=== PATIENT | female | born 1950 | race Caucasian/White ===

== ENCOUNTER 2020-05-01 10:28 | Outpatient (REF) | payer MEDICARE, SELFPAY ==
--- NOTE | 2020-05-01 10:34 | MM_ITS ---
EXAMINATION: MM SCREENING DIGITAL MAMMOGRAPHY, BILATERAL CLINICAL INFORMATION: Screening. Asymptomatic. Remote history left excisional biopsy 2008. The lifetime risk of breast cancer based on the Tyrer-Cuzick Model is 13%. COMPARISON: Mammography: 04/26/2019, 04/06/2018, 03/11/2017, 02/20/2016 TECHNIQUE: Digital mammography is performed in craniocaudal and mediolateral oblique views along with computer-aided detection (CAD). FINDINGS: There are scattered areas of fibroglandular density (ACR BI-RADS breast composition Category b). Parenchymal pattern is similar to prior exams. There is stable scarring central inner left breast on CC view similar to prior studies. Neither breast shows interval mass or architectural abnormality or developing density. There are no abnormal calcifications. The axilla and skin contours are unremarkable. IMPRESSION: No significant changes from prior studies. ASSESSMENT: BI-RADS 2: Benign RECOMMENDATION: Routine annual mammography screening. This patient's information was entered into a reminder system with a target due date for their next mammogram.
== END 2020-05-01 10:29 | disposition home or self-care (01) ==
LOC: HO.MAMMO 10:28
PROVIDERS: PCP Internal Medicine; Visit Provider Internal Medicine
DX: Z12.31 Encounter for screening mammogram for malignant neoplasm of breast (principal)
CPT/HCPCS: 77067

== ENCOUNTER 2020-08-09 07:59 | Outpatient (REF) | payer MEDICARE, SELFPAY | END 2020-08-09 08:00 | disposition home or self-care (01) | LOC: HO.LAB 07:59 | PROVIDERS: Visit Provider Internal Medicine | DX: Z20.822 Contact with and (suspected) exposure to COVID-19 (principal) | CPT/HCPCS: 36415; C9803; U0003 ==

== ENCOUNTER 2021-05-03 11:01 | Outpatient (REF) | payer MEDICARE, SELFPAY ==
--- NOTE | ~2021-05-03 | MM_ITS ---
EXAMINATION: MM SCREENING DIGITAL BREAST TOMOSYNTHESIS, BILATERAL CLINICAL INFORMATION: Screening. Asymptomatic. Left excisional biopsies, reported to be benign on old reports. The lifetime risk of breast cancer based on the Tyrer-Cuzick Model is 11%. COMPARISON: Mammography: 05/01/2020, 04/26/2019, 04/06/2018, 03/11/2017, 02/20/2016 TECHNIQUE: Digital breast tomosynthesis is performed in both the craniocaudal and mediolateral oblique views along with computer-aided detection (CAD). Synthesized 2D images are generated from the tomosynthesis. FINDINGS: There are scattered areas of fibroglandular density (ACR BI-RADS breast composition Category b). There is chronic scarring mid 11:00 left breast similar to prior studies. Neither breast shows interval mass or architectural abnormality. There are no abnormal calcifications. The axilla and skin contours are unremarkable. No significant changes. MM/MM tomosynthesis screening BI IMPRESSION: No significant changes from prior studies. Chronic scarring mid inner left breast. ASSESSMENT: BI-RADS 2: Benign RECOMMENDATION: Routine annual mammography screening. This patient's information was entered into a reminder system with a target due date for their next mammogram.
== END 2021-05-03 11:02 | disposition home or self-care (01) ==
LOC: HO.MAMMO 11:01
PROVIDERS: Visit Provider Internal Medicine
DX: Z12.31 Encounter for screening mammogram for malignant neoplasm of breast (principal)
CPT/HCPCS: 77063; 77067

== ENCOUNTER 2021-07-24 12:08 | Emergency (ER) | payer MEDICARE, SELFPAY ==
--- NOTE | ~2021-07-24 | XR_ITS ---
Indication: Pain, swelling, fall EXAMINATION: Right hand, wrist. 3 views of the right hand in a single detailed view of the right wrist. Cannot exclude some mild subluxation of the first MCP joint. Correlation recommended clinically. No evidence for acute fracture or pooja dislocation. XR/XR hand wrist RT IMPRESSION: No acute fracture or pooja dislocation. Mild angulation on one view only of the first MCP joint. Mild element of subluxation here cannot be excluded. Correlation recommended clinically.
[2021-07-24 13:57] VITALS: BP 126/72; PULSE 79; RESP 18; TEMP 36.8; O2SAT 98; BMI 30.9
--- NOTE | 2021-07-24 16:45 | ED_ITS ---
HPI - Extremity Problem General Chief complaint: Extremity Injury, Upper Stated complaint: R Wrist Pain S/P Fall 07/24/21 Time Seen by Provider: 07/24/21 16:44 History of Present Illness HPI Narrative: Patient complains of right wrist pain after falling this morning the pain is the anterior wrist there is no other injury no numbness weakness or tingling Related Data Allergies Allergy/AdvReac Type Severity Reaction Status Date / Time No Known Allergies Allergy Verified 07/24/21 14:01 Review of Systems Review of Systems: Positive for right wrist pain Negatives are no dizziness no weakness no fainting no headache no head injury no neck pain no numbness weakness or tingling no other extremity injuries or pains Yes all other systems are reviewed and are negative [facility] Past Medical History Source: nursing notes reviewed Medical History (Updated 07/25/21 @ 00:02 by Brittany Wagoner) High cholesterol HTN (hypertension) Social History Social History Advance Directives: Yes Advance Directives Information Provided: No Advance Directives on File: No Physical Exam Vital Signs: Vital Signs: Last Vital Signs Temp 98.2 F 07/24/21 13:57 Pulse 79 07/24/21 13:57 Resp 18 07/24/21 13:57 BP 126/72 07/24/21 13:57 Pulse Ox 98 07/24/21 13:57 BMI result Body Mass Index 30.9 General appearance no acute distress The head is normocephalic atraumatic The neck is supple nontender Respiratory no distress The back full range of motion The extremities the right wrist has some tenderness mostly on volar aspect there is no deformity there is good range of motion in the wrist and full range of motion in the fingers and neurovascular intact distal with skin intact Course Course Course Narrative: X-ray did not show any fracture and exam was not consistent with a broken bone X-ray showed some concern about the 1st MCP but on exam there is no tenderness or pain around the 1st MCP which had full range of motion and no limitations Discharge Plan Discharge Clinical Impression: Sprain and strain of wrist Patient Disposition: Home, Self-Care Additional Instructions: X-ray did not show any broken bone We gave you a splint for comfort which is not required all the time, only if it makes it more comfortable Follow with orthopedist next week if not better Return any concerns Referrals: July Bhatia MD [Physician] - 1 week (Right wrist sprain) Interventions: ED Discharge Assessment Last Done: 07/24/21 17:17 Discharge Date/Time: 07/24/21 17:19
== END 2021-07-24 17:19 | disposition home or self-care (01) ==
PROVIDERS: Emergency Provider Emergency Medicine Emergency Medical Services; PCP Internal Medicine
DX: S63.501A Unspecified sprain of right wrist, initial encounter (principal); S66.911A Strain of unspecified muscle, fascia and tendon at wrist and hand level, right hand, initial encounter; I10 Essential (primary) hypertension; W19.XXXA Unspecified fall, initial encounter; Y93.9 Activity, unspecified; Y92.9 Unspecified place or not applicable; Y99.9 Unspecified external cause status
CPT/HCPCS: 73110; 73130; 99283

== ENCOUNTER 2022-05-09 15:22 | Outpatient (REF) | payer MEDICARE, SELFPAY ==
--- NOTE | ~2022-05-09 | MM_ITS ---
EXAMINATION: MM SCREENING DIGITAL BREAST TOMOSYNTHESIS, BILATERAL CLINICAL INFORMATION: Screening. Asymptomatic. The lifetime risk of breast cancer based on the Tyrer-Cuzick Model is 10.4%. COMPARISON: Mammography: May 03, 2021 and studies dating back to December 14, 2013 TECHNIQUE: Digital breast tomosynthesis is performed in both the craniocaudal and mediolateral oblique views along with computer-aided detection (CAD). Synthesized 2D images are generated from the tomosynthesis. FINDINGS: There are scattered areas of fibroglandular density (ACR BI-RADS breast composition Category b). There are no new significant masses, abnormal calcifications, or other abnormalities. Postsurgical change again seen within the left breast. MM/MM tomosynthesis screening BI IMPRESSION: No significant changes from prior exam. ASSESSMENT: BI-RADS 2: Benign RECOMMENDATION: Routine annual mammography screening. This patient's information was entered into a reminder system with a target due date for their next mammogram.
== END 2022-05-09 15:23 | disposition home or self-care (01) ==
LOC: HO.MAMMO 15:22
PROVIDERS: Visit Provider Internal Medicine
DX: Z12.31 Encounter for screening mammogram for malignant neoplasm of breast (principal)
CPT/HCPCS: 77063; 77067

== ENCOUNTER 2023-05-12 10:17 | Outpatient (REF) | payer MEDICARE, SELFPAY ==
--- NOTE | ~2023-05-12 | MM_ITS ---
EXAMINATION: MM SCREENING DIGITAL BREAST TOMOSYNTHESIS, BILATERAL CLINICAL INFORMATION: Screening. Asymptomatic. Patient is status post prior benign excisional left breast breast biopsies. COMPARISON: Mammography: This study is compared with prior exams dating back to 2017. TECHNIQUE: Digital breast tomosynthesis is performed in both the craniocaudal and mediolateral oblique views along with computer-aided detection (CAD). Synthesized 2D images are generated from the tomosynthesis. FINDINGS: There are scattered areas of fibroglandular density (ACR BI-RADS breast composition Category b). There are no significant masses, abnormal calcifications, or other abnormalities in either breast. There are architectural changes in the medial aspect of the left breast at a middle depth. This is from prior benign excisional biopsy. This finding is unchanged since at least 2016. There are 2 benign calcifications associated with this region which are unchanged since at least as far back as 2017. There are also architectural changes in the upper outer quadrant of the left breast from prior surgery. MM/MM tomosynthesis screening BI IMPRESSION: No mammographic evidence of malignancy. ASSESSMENT: BI-RADS BI-RADS 2 - Benign Findings RECOMMENDATION: Routine annual mammography screening. 1 year F/U This examination should not preclude the clinical evaluation of a suspicious palpable abnormality. This patient's information was entered into a reminder system with a target due date for their next mammogram.
== END 2023-05-12 10:18 | disposition home or self-care (01) ==
LOC: HO.MAMMO 10:17
PROVIDERS: PCP Internal Medicine; Visit Provider Internal Medicine
DX: Z12.31 Encounter for screening mammogram for malignant neoplasm of breast (principal)
CPT/HCPCS: 77063; 77067

== ENCOUNTER → 2023-05-12 10:30 | Outpatient (BNV) | payer MEDICARE, SELFPAY | PROVIDERS: PCP Internal Medicine; Visit Provider Radiology Diagnostic Radiology | DX: Z12.31 Encounter for screening mammogram for malignant neoplasm of breast (principal) | CPT/HCPCS: 77063; 77067 ==

== ENCOUNTER 2024-06-16 12:11 | Outpatient (REF) | payer MEDICARE, SELFPAY ==
--- NOTE | ~2024-06-16 | MM_ITS ---
EXAMINATION: MM SCREENING DIGITAL BREAST TOMOSYNTHESIS, BILATERAL CLINICAL INFORMATION: Screening. Asymptomatic. COMPARISON: Mammography: Comparison is made with available priors TECHNIQUE: Digital breast mammography with tomosynthesis is performed in both the craniocaudal and mediolateral oblique views along with computer-aided detection (CAD). FINDINGS: There are scattered areas of fibroglandular density (ACR BI-RADS breast composition Category b). Right: There are no significant masses, abnormal calcifications, or other abnormalities. Left: Asymmetry medial breast anterior depth on CC view with questioned architectural distortion. There are post excisional biopsy changes stable back to 2017. No suspicious calcifications or other abnormal findings. MM/MM tomosynthesis screening BI IMPRESSION: Additional imaging is recommended ASSESSMENT: BI-RADS BI-RADS 0 - Incomplete: Needs additional Imaging. RECOMMENDATION: 1. Additional views of the left breast 2. Targeted ultrasound if warranted after review of the additional views. 3. Radiology department staff will contact the patient for additional imaging. Additional Imaging required This examination should not preclude the clinical evaluation of a suspicious palpable abnormality. This patient's information was entered into a reminder system with a target due date for their next mammogram. Electronically signed by: Evie Van DO 06/23/2024 02:51 PM [facility]
== END 2024-06-16 12:12 | disposition home or self-care (01) ==
LOC: HO.MAMMO 12:11
PROVIDERS: PCP Internal Medicine; Visit Provider Internal Medicine
DX: Z12.31 Encounter for screening mammogram for malignant neoplasm of breast (principal)
CPT/HCPCS: 77063; 77067

== ENCOUNTER → 2024-06-16 12:30 | Outpatient (BNV) | payer MEDICARE, SELFPAY | PROVIDERS: PCP Internal Medicine; Visit Provider Internal Medicine | DX: Z12.31 Encounter for screening mammogram for malignant neoplasm of breast (principal) | CPT/HCPCS: 77063; 77067 ==

== ENCOUNTER 2024-07-09 08:57 | Outpatient (REF) | payer MEDICARE, SELFPAY ==
--- NOTE | ~2024-07-09 | US_ITS ---
EXAMINATION: MM DIAGNOSTIC DIGITAL BREAST TOMOSYNTHESIS, LEFT Limited left breast ultrasound. CLINICAL INFORMATION: Call back from screening for asymmetry in the medial left breast anterior depth on CC view with questioned distortion. COMPARISON: Mammography: Comparison is made with available prior examinations. TECHNIQUE: Digital breast tomosynthesis is performed in both the craniocaudal and mediolateral oblique views along with computer-aided detection (CAD). Synthesized 2D images are generated from the tomosynthesis. Limited left breast ultrasound. FINDINGS: There are scattered areas of fibroglandular density (ACR BI-RADS breast composition Category b). Post surgical changes are stable. There is a 5 mm asymmetry which has morphology consistent with a lymph node in the medial left breast on CC view which persist on additional imaging projections. Reviewing prior images this area is not significantly changed dating back to 2021 on mammograms. There are no significant masses, abnormal calcifications, or other abnormalities. Targeted color Doppler left breast ultrasound scanning in the medial left breast lower inner quadrant from 7-10 o'clock demonstrates a normal appearing intramammary lymph node versus less likely a few adjacent minimally complicated cysts at 9:00 5 cm from nipple measuring 3 x 2 x 5 mm. Reviewing prior mammograms this is not significantly changed from priors dating back to 2021 and therefore benign. US/US breast LT limited mamm only IMPRESSION: Intramammary lymph node versus minimally complicated cyst in the left breast which on mammograms are not significantly changed dating back for 2 years. Benign. ASSESSMENT: BI-RADS BI-RADS 2 - Benign Findings RECOMMENDATION: 1 year F/U Results were provided to the patient at time of visit by the technologist. This patient's information was entered into a reminder system with a target due date for their next mammogram. Electronically signed by: Evie Van DO 07/09/2024 10:26 AM [facility]
== END 2024-07-09 08:58 | disposition home or self-care (01) ==
LOC: HO.MAMMO 08:57
PROVIDERS: PCP Internal Medicine; Visit Provider Internal Medicine
DX: N64.89 Other specified disorders of breast (principal)
CPT/HCPCS: 76642; 77061; 77065

== ENCOUNTER → 2024-07-09 09:15 | Outpatient (BNV) | payer MEDICARE, SELFPAY | PROVIDERS: PCP Internal Medicine; Visit Provider Internal Medicine | DX: R92.8 Other abnormal and inconclusive findings on diagnostic imaging of breast (principal) | CPT/HCPCS: 76642; 77065; G0279 ==

== ENCOUNTER 2025-06-17 11:39 | Outpatient (REF) | payer MEDICARE, SELFPAY ==
--- NOTE | ~2025-06-17 | MM_ITS ---
EXAMINATION: MM SCREENING DIGITAL BREAST TOMOSYNTHESIS, BILATERAL CLINICAL INFORMATION: Screening. Asymptomatic. COMPARISON: Mammography: Comparison is made with available priors TECHNIQUE: Digital breast mammography with tomosynthesis is performed in both the craniocaudal and mediolateral oblique views along with computer-aided detection (CAD). FINDINGS: There are scattered areas of fibroglandular density. Left post excisional biopsy changes are stable. There are no significant masses, abnormal calcifications, or other abnormalities. MM/MM tomosynthesis screening BI IMPRESSION: No mammographic evidence of malignancy. ASSESSMENT: BI-RADS Category 2: Benign RECOMMENDATION: Routine annual mammography screening. 1 year F/U This examination should not preclude the clinical evaluation of a suspicious palpable abnormality. This patient's information was entered into a reminder system with a target due date for their next mammogram. Electronically signed by: Evie Van DO 06/21/2025 09:07 AM [facility]
--- OUTSIDE RECORDS SUMMARY | 2025-06-17 12:29 | XMS_ITS | Patient Health Record ---
Author Organization [facility] Address [address] [place] [address] Care Team Providers Care Glove Printer Name Role Phone Ricky Quach MD Primary Care Provider Alan Clark [phone] Reason For Referral No Information Medications Medication SIG (Take, Route, Frequency, Duration) Notes Start Date End Date Status amLODIPine Besylate Active Multivitamin Adult - Tablet Orally Active Terbinafine HCl 250 MG Tablet 1 tablet Orally Once a day For toenail fungus Active Social History Social History Additional Details Category Social Info Options Details Miscellaneous: Marital status: Occupation: Certified dental asst Section Notes: Former smoker over 17 years ago; 2 glasses of wine QD Problems Problem Type SNOMED Code ICD Code Onset Dates Problem Status W/U Status Risk Notes Problem Screening for malignant neoplasm of colon (560284076) Encounter for screening for malignant neoplasm of colon (Z12.11) Active confirmed Problem History of adenomatous polyp of colon (325910672) History of adenomatous polyp of colon (Z86.010) Active confirmed Problem Screening for malignant neoplasm of rectum (500872089) Encounter for screening for malignant neoplasm of rectum (Z12.12) Active confirmed Problem Preprocedural examination (702523140014877) Preprocedural examination (Z01.818) Active confirmed Plan Of Treatment Future Test Test Name Order Date COLONOSCOPY 07/09/2016 Insurance Providers Payer Name Payer Address Payer Phone Subscriber Number Group Number Insured Name Patient Relationship to Insured Coverage Start Date Coverage End Date [employer] [address] [place] [address] [id number] DEBI CARLTON Self - patient is the insured Medical (General) History Medical History History ICD Code Hypertension Denies RI,DM,CVA,Lung disease,renal dise ase Toenail fungus Colonoscopies in 2010 and in 2005 with r emoval of tubular adenomas Surgical History Surgery Date(Month/Year) Knee left Lumpectomy, left breast-benign Appy
--- OUTSIDE RECORDS SUMMARY | 2025-06-17 12:29 | XMS_ITS | Patient Health Record ---
Author Organization [facility] Address [address] [place] [address] Care Team Providers Care Ship Superintendent Name Role Phone Ricky Quach MD Primary Care Provider Unavaila Tenisha Saucedoe Unavailable [phone] Reason For Referral No Information Medications Medication SIG (Take, Route, Frequency, Duration) Notes Start Date End Date Status amLODIPine-Atorvastatin Active Culturelle Active Multivitamin Active Calcium Active Vitamin D Active Terbinafine Not-Taki ng LamISIL 250 MG 1 tablet Orally robert y for 1 week than stop for 3 weeks then continue for 1 week. 11/30/2015 Not-Taking Keflex 500 MG 1 capsule Orally Twi ce a day; Duration: 10 day(s) 08/27/2013 Not-[place] ing Social History Tobacco Use: Social History Observation Description Date Details (start date - stop date) Former Smoker NA - NA Tobacco Use/Smoking Question Answer Notes Are you a: former smoker Additional Findings: Tobacco Non-User Current no n-smoker Alcohol Screen Question Answer Notes Did you have a drink contain ing alcohol in the past year? Yes How often did you have a dri nk containing alcohol in the past year? 2 to 4 times a month (2 points) Points 2 Interpretation Negative Tobacco use other than smoking: Question Answer Notes Are you an other tobacco user? No Problems Problem Type SNOMED Code ICD Code Onset Dates Problem Status W/U Status Risk Notes Problem Acquired hammer toe of right foot (1058398597384 105) Other hammer toe(s) (acquired), right foot (M20.41) Active confirmed Problem Acquired hammer toe of left foot (2475979193463 103) Hammer toe of left foot (M20.42) Active confirmed Plan Of Treatment Pending Test Test Name Order Date *Liver Function Test (LFT) 11/24/2015 [id number] NAIL, 6 OR MORE 12/19/2016 [id number] NAIL, 6 OR MORE 03/20/2017 [id number] NAIL, 6 OR MORE 11/10/2017 77590-[id number] NAIL, 6 OR MORE 03/20/2016 54836-[id number] NAIL, 6 OR MORE 09/12/2016 [id number] NAIL, 6 OR MORE 11/24/2015 [id number] NAIL, 6 OR MORE 05/11/2018 17621-Dstp Destruction, 1-14 09/12/2016 52757-Wxwl Destruction, 1-14 12/19/2016 89729-Jcdp Destruction, 1-14 05/11/2018 61899-Mfjc Destruction, 1-14 11/10/2017 71434-Ieyt Destruction, 1-14 03/20/2017 66612-Yaya Destruction, 1-14 03/20/2016 08487- Debride <25 sq cm 01/18/2013 86853- Debride <25 sq cm 08/27/2013 25976 I&D ABSCESS- SIMPLE,SINGLE 013 [id number] I&D ABSCESS- SIMPLE,SINGLE 014 Insurance Providers Payer Name Payer Address Payer Phone Subscriber Number Group Number Insured Name Patient Relationship to Insured Coverage Start Date Coverage End Date [facility] [employer] [address] [place] [address] [id number] Anya Lo Self - patient is the insured Medical (General) History Medical History History ICD Code warts back, hip, knee pain Arthritis Surgical History Surgery Date(Month/Year) knee surgery 2009 lumpectomy 1988
== END 2025-06-17 11:40 | disposition home or self-care (01) ==
LOC: HO.MAMMO 11:39
PROVIDERS: PCP Internal Medicine; Visit Provider Internal Medicine
DX: Z12.31 Encounter for screening mammogram for malignant neoplasm of breast (principal)
CPT/HCPCS: 77063; 77067

== ENCOUNTER → 2025-06-17 12:00 | Outpatient (BNV) | payer MEDICARE, SELFPAY | PROVIDERS: PCP Internal Medicine; Visit Provider Internal Medicine | DX: Z12.31 Encounter for screening mammogram for malignant neoplasm of breast (principal) | CPT/HCPCS: 77063; 77067 ==